=== PATIENT | female | born 1935 | race Caucasian/White ===

== ENCOUNTER → 2017-02-06 | Day surgery (SDC) | payer OTHER, MEDICARE ==
[~2017-02-06] VITALS: Ht 172.7 cm; Wt 62.6 kg
[~2017-02-06] MED LIST: ARICEPT10 M1 PO; EFFEXOR XR75 M1 PO; SIMVASTATIN80 M1 PO
--- NOTE | 2017-02-06 15:00 | Operative Report ---
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 She was consented for trabeculectomy of the [left] eye [with mitomycin -C]. [Mitomycin was used in this case because the patient has had previous intraocular surgery.] The patient was brought to the operating room and standard monitoring equipment was attached. The patient was prepped and draped in the usual fashion for sterile intraocular surgery. A lid speculum was used to retract the lids. A small temporal incision was made with an I- knife and non-preserved lidocaine was introduced into the anterior chamber to provide anesthesia. The patient was asked to look down. Conjunctiva and Tenon's tissue was opened at the 12 o'clock position using non-toothed forceps and a Vannas scissors. A fornix based conjunctival peritomy was continued using Larry's scissors. Additional anesthesia was achieved by infusing a 50:50 mixture of 2 percent lidocaine and 0.75 Marcaine which had been mixed previously underneath the conjunctiva and tenon's tissue. The sclera at the limbus was cleaned off using a 69 blade and a Weck-Kiera sponge. A partial thickness groove was made tangential to the limbus approximately 1.5 mm back using the same 69 blade. A crescent knife was used to tunnel from this incision into clear cornea and then the anterior chamber was entered with a 2.4 mm keratome. Several punches of the posterior wound lip were taken with a Carola Descemet punch. A Gonzales forceps was used to grasp the iris and a peripheral iridectomy was fashioned using the Vannas scissors. The trabeculectomy flap was sutured using [2] interrupted 10-0 nylon sutures whose knots were trimmed and buried. The flap was assessed for flow but no additional sutures were placed. [Mitomycin-C 0.4 mg/mL was placed on several previously cut Weck-Kiera sponges and held underneath the tenons fascia for approximately 90 seconds keeping the edge of the conjunctival surface away from the mitomycin. The instruments used to handle the mitomycin were removed from the field and the area copiously irrigated with balanced salt solution.] The conjunctiva was reapproximated to the eye wall using 6 interrupted 10-0 nylon sutures whose knots were trimmed and rotated underneath the tissue. The eye was pressurized to an adequate tone by introducing balanced salt solution into the anterior chamber. This caused the bleb to elevate. The bleb area was assessed for leaks and since there were none the [the lid speculum] [was] removed. The eye was shielded over antibiotic and steroid [ drops]. Patient was removed from the operating room in stable condition and brought to same-day surgery having tolerated the procedure well.
== END ==
LOC: STS 04:53
DX: H40.1113 Primary open-angle glaucoma, right eye, severe stage (principal); E78.00 Pure hypercholesterolemia, unspecified; G30.9 Alzheimer's disease, unspecified; F02.80 Dementia in other diseases classified elsewhere, unspecified severity, without behavioral disturbance, psychotic disturbance, mood disturbance, and anxiety
CPT/HCPCS: J2001; J2250; J2405; J9280